=== PATIENT | female | born 1960 | race Asian ===

== ENCOUNTER 2016-12-20 00:55 | Inpatient (IN) | payer BC ==
[~2016-12-20] VITALS: Ht 157.5 cm; Wt 56.0 kg
[~2016-12-20 00:55] MED LIST: ART5 PO; BUS10 PO; RIS1 PO; SYM100 PO
[2016-12-20 01:37] LABS: RED CELL DISTRIBUTION WIDTH 11.9 % (11.5-14.5)
[2016-12-20 01:39] LABS: PLATELET COUNT 202 x10^3mcL (130-400)
[2016-12-20 01:51] LABS: CALCIUM 9.2 mg/dL (8.5-10.1); CARBON DIOXIDE 23.2 mmol/L (21-32); CHLORIDE SERUM 102 mmol/L (98-107); CREATININE SERUM 1.1 mg/dL (0.6-1.0); GFR1 55 mL/min; GLUCOSE SERUM 174 mg/dL (74-106); POTASSIUM SERUM 3.1 mmol/L (3.5-5.1); SODIUM SERUM 141 mmol/L (136-145)
[2016-12-20 01:56] LABS: ALBUMIN 4.1 g/dL (3.4-5.0); ALKALINE PHOSPHATASE 50 U/L (46-116); ALT/SGPT 33 U/L (14-59); AST/SGOT 22 U/L (15-37); BILIRUBIN TOTAL 0.36 mg/dL (0.20-1.00)
[2016-12-20 02:05] LABS: TOTAL PROTEIN, SERUM 8.5 g/dL (6.4-8.2)
[2016-12-20] MEDS ORDERED: TRIHEXYPHENIDYL2 MG PO (02:32)
[2016-12-20] MEDS ORDERED: SEROQUEL50 M1 PO (02:33)
[2016-12-20 03:28] VITALS: BP 143/92
[2016-12-20 04:31] LABS: T3 TOTAL 0.91 ng/mL
[2016-12-20 04:32] LABS: MAGNESIUM 2.2 mg/dL (1.8-2.4); PHOSPHOROUS 3.3 mg/dL (2.5-4.9)
[2016-12-20 04:35] LABS: CHOLESTEROL/HDL RATIO 3.5; FREE T4 1.24 ng/dL (0.76-1.46); FREE THYROXINE INDEX 3.1 ug/dL (1.4-4.5); T4(THYROXINE) 8.3 ug/dL (4.7-13.3)
[2016-12-20 05:25] LABS: UA SPECIFIC GRAVITY <=1.005 (1.005-1.035); microscopic required? YES; urine erythrocyte TRACE (NEGATIVE)
[2016-12-20 05:39] LABS: AMPHETAMINE QUAL UR NONE DETECTED (NEG <=1000)
[2016-12-20 06:00] LABS: CALCIUM 9.2 mg/dL (8.5-10.1); CARBON DIOXIDE 25.6 mmol/L (21-32); CHLORIDE SERUM 111 mmol/L (98-107); GFR1 > 60 mL/min; GLUCOSE SERUM 109 mg/dL (74-106); MAGNESIUM 3.4 mg/dL (1.8-2.4); PHOSPHOROUS 3.8 mg/dL (2.5-4.9); POTASSIUM SERUM 4.3 mmol/L (3.5-5.1); SODIUM SERUM 147 mmol/L (136-145)
[2016-12-20 07:10] VITALS: BP 133/89
[2016-12-20 11:05] VITALS: BP 134/95
[2016-12-20 15:00] VITALS: BP 141/87
[2016-12-20 19:29] VITALS: BP 101/78
[2016-12-20 23:40] VITALS: BP 95/66
[2016-12-21 05:09] VITALS: BP 121/57
[2016-12-21 05:48] LABS: CALCIUM 9.1 mg/dL (8.5-10.1); CARBON DIOXIDE 26.4 mmol/L (21-32); CREATININE SERUM 1.1 mg/dL (0.6-1.0); MAGNESIUM 2.2 mg/dL (1.8-2.4); PHOSPHOROUS 3.7 mg/dL (2.5-4.9); POTASSIUM SERUM 3.7 mmol/L (3.5-5.1)
[2016-12-21 05:54] LABS: BASOPHIL % 0.4 % (0-2); PLATELET COUNT 191 x10^3mcL (130-400); RED CELL DISTRIBUTION WIDTH 13.4 % (11.5-14.5)
[2016-12-21 08:00] VITALS: BP 124/83
[2016-12-21 12:00] VITALS: BP 119/68
[2016-12-21 13:04] LABS: CALCIUM 9.3 mg/dL (8.5-10.1); CARBON DIOXIDE 29.7 mmol/L (21-32); CREATININE SERUM 1.2 mg/dL (0.6-1.0); POTASSIUM SERUM 3.5 mmol/L (3.5-5.1)
[2016-12-21 15:28] VITALS: BP 116/69
[2016-12-21 19:30] VITALS: BP 100/49
[2016-12-22] VITALS: BP 101/60
[2016-12-22 03:55] VITALS: BP 100/65
[2016-12-22 04:49] LABS: BASOPHIL % 0.5 % (0-2); PLATELET COUNT 190 x10^3mcL (130-400); RED CELL DISTRIBUTION WIDTH 12.8 % (11.5-14.5)
[2016-12-22 04:59] LABS: CALCIUM 9.5 mg/dL (8.5-10.1); CARBON DIOXIDE 29.2 mmol/L (21-32); CHLORIDE SERUM 113 mmol/L (98-107); GFR1 > 60 mL/min; GLUCOSE SERUM 104 mg/dL (74-106); POTASSIUM SERUM 3.7 mmol/L (3.5-5.1); SODIUM SERUM 149 mmol/L (136-145)
[2016-12-22 07:25] VITALS: BP 130/88
[2016-12-22 12:25] VITALS: BP 111/68
[2016-12-22 15:31] VITALS: BP 119/67
[2016-12-22 16:00] VITALS: BP 119/87
[2016-12-22] MEDS ORDERED: LEV250 PO (16:56)
== END 2016-12-22 17:45 | disposition home or self-care (01) | DRG 917 ==
LOC: ED 00:55 → IC 02:15
PROVIDERS: Emergency Medicine; ADMIT Family Medicine
DX: T44.3X2A Poisoning by other parasympatholytics [anticholinergics and antimuscarinics] and spasmolytics, intentional self-harm, initial encounter (principal); G92 Toxic encephalopathy; N39.0 Urinary tract infection, site not specified; E87.0 Hyperosmolality and hypernatremia; F25.0 Schizoaffective disorder, bipolar type; E87.6 Hypokalemia; F32.9 Major depressive disorder, single episode, unspecified; Y92.018 Other place in single-family (private) house as the place of occurrence of the external cause; Z68.22 Body mass index [BMI] 22.0-22.9, adult; Z91.5 Personal history of self-harm; E87.8 Other disorders of electrolyte and fluid balance, not elsewhere classified; E83.41 Hypermagnesemia; E78.5 Hyperlipidemia, unspecified
CPT/HCPCS: 83880; 84439; G0480; J0696; J2060; J3475; J3480; J7030